=== PATIENT | female | born 1990 | race Caucasian/White ===

== ENCOUNTER 2018-02-26 13:45 | Emergency (ER) | payer OTHER ==
[2018-02-26 14:30] LABS: Urine Blood TRACE (NEG); Urine Glucose NEGATIVE (NEG); Urine Protein NEGATIVE (NEG); Urine Specific Gravity >1.030 (1.005-1.030)
[2018-02-26 15:55] LABS: Absolute Lymphocytes (CBC) 2.6 K/uL (0.7-4.9); Absolute Monocytes 0.8 K/uL (0.1-1.3); Absolute Neutrophil 3.9 K/uL (1.8-8.0); Basophils % 0.6 % (0-1.3); Eosinophils % 1.3 % (0-4.4); Hematocrit 45.2 % (36.0-45.0); MCH 30.6 pg (27.0-35.0); MCV 91.3 fL (80-100); MPV 9.3 fL (7.6-11.3); Monocytes % 10.6 % (3.3-12.3); RBC Red Blood Cell Count 4.95 M/uL (3.86-4.86)
[2018-02-26 16:07] LABS: Potassium 4.2 mEq/L (3.6-5.0)
[2018-02-26 16:13] LABS: Albumin 4.1 g/dL (3.2-5.5); Bilirubin Direct 0.1 mg/dL (0-0.2); Bilirubin Total 0.6 mg/dL (0.3-1.2); Protein, Total 7.7 g/dL (6.0-8.3)
--- NOTE | 2018-02-26 16:14 | RAD REPORT ---
EXAM DESCRIPTION: CT - Abdomen Pelvis W Contrast - 02/26/2018 3:58 pm CLINICAL HISTORY: Abdominal pain and pressure, history of endometriosis COMPARISON: None. TECHNIQUE: Biphasic, helical CT imaging of the abdomen and pelvis was performed following 100 ml non -ionic IV contrast. No oral contrast administered. All CT scans are performed using dose optimization technique as appropriate and may include automated exposure control or mA/KV adjustment according to patient size. FINDINGS: No suspicious findings in the lung bases. The liver, spleen, and pancreas show no suspicious findings. Gallbladder and biliary tree are also wi thout suspicious finding. Symmetric renal function is seen with no hydronephrosis or suspicious renal mass. No gastric dilatation or gastric wall thickening. No small bowel abnormality. Appendix is normal. No acute finding of the colon. No free air or pneumatosis. No hernia or bulky lymphadenopathy. Urinary bladder is mostly contracted limiting assessment. No abnormality suspected. No adrenal abnormality. There is a very large homogeneous fluid attenuation mass filling the pelvis. This is 17 x 10 mm in cr oss-sectional dimension. Uterus is deviated to the left but otherwise unremarkable. A 17 millimeter i nvoluting cyst of the left ovary is seen. Normal right ovarian tissue is difficult to identified. Phy siologic quantity of free fluid is present in the cul-de-sac. No suspicious bony findings. IMPRESSION: A 17 x 10 centimeter homogeneous fluid collection fills the pelvis. A right ovarian cyst adenoma is the single most likely etiology. Cystadenocarcinoma is not excluded but is not likely. Likewise, endometrioma is not suspected.
[2018-02-26 16:33] LABS: Urine Bacteria <20 /HPF (<20); Urine Culture Reflex Order REFLEXED; Urine Mucus 1+ /HPF (NONE SEEN); Urine RBC <5 /HPF (NONE SEEN)
--- NOTE | 2018-02-26 16:33 | ER ---
Nurse's Notes [facility] Name: Martina Carreon Age: 27 yrs Sex: Female : 1990 Arrival Date: 02/26/2018 Time: 13:48 Bed 13 Private MD: None, None Diagnosis: Unspecified ovarian cysts Presentation: 02/26 13:57 Presenting complaint: Patient states: Bilateral lower abdominal pressure for 3 days. aj Patient reports recent irregular periods. Has appointment with [facility] 03/09. Transition of care: patient was not received from another setting of care. Onset of symptoms was February 15, 2018. Care prior to arrival: None. 13:57 Method Of Arrival: Ambulatory aj 13:57 Acuity: HI 3 aj 14:16 Risk Assessment: Do you want to hurt yourself or someone else? Patient reports no tw2 desire to harm self or others. Initial Sepsis Screen: Does the patient meet any 2 criteria? No. Patient's initial sepsis screen is negative. Does the patient have a suspected source of infection? No. Patient's initial sepsis screen is negative. Triage Assessment: 13:59 General: Appears in no apparent distress. uncomfortable, Behavior is calm, cooperative, aj appropriate for age. Pain: Complains of pain in suprapubic area, right inguinal area and left inguinal area. Neuro: Level of Consciousness is awake, alert, obeys commands, Oriented to person, place, time, situation, Appropriate for age. Respiratory: Airway is patent Respiratory effort is even, unlabored, Respiratory pattern is regular, symmetrical. GI: Abdomen is round non-distended, Reports lower abdominal pain. Derm: Skin is intact, is healthy with good turgor, Skin is pink, warm \T\ dry. normal. 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 - Social history:: Smoking status: Patient uses tobacco products, smokes one pack cigarettes per day. Patient/guardian denies using alcohol, street drugs, The patient lives with family. - Ebola Screening: : Patient denies travel to an Ebola-affected area in the 21 days before illness onset. - Family history:: not pertinent. Screenin:16 Abuse screen: Denies threats or abuse. Nutritional screening: No deficits noted. tw2 Tuberculosis screening: No symptoms or risk factors identified. Fall Risk None identified. Assessment: 14:14 General: Appears in no apparent distress. Behavior is calm, cooperative, appropriate tw2 for age. Pain: Complains of pain in left inguinal area and right inguinal area and suprapubic area. Neuro: Level of Consciousness is awake, alert, obeys commands, Oriented to person, place, time, Appropriate for age. Cardiovascular: Denies chest pain, shortness of breath, Heart tones S1 S2 Capillary refill < 3 seconds Patient's skin is warm and dry. Respiratory: Airway is patent Respiratory effort is even, unlabored, Respiratory pattern is regular, symmetrical, Breath sounds are clear bilaterally. GI: Abdomen is round Bowel sounds present X 4 quads. Abd is soft X 4 quads Reports lower abdominal pain, bloating. : No signs and/or symptoms were reported regarding the genitourinary system. : Reports irregular period and having endometriosis. EENT: No signs and/or symptoms were reported regarding the EENT system. Derm: No signs and/or symptoms reported regarding the dermatologic system. Musculoskeletal: Range of motion: intact in all extremities. 15:50 Reassessment: pt taken to ct at this time. tw2 16:18 Reassessment: Patient appears in no apparent distress at this time. No changes from tw2 previously documented assessment. Patient and/or family updated on plan of care and expected duration. Pain level reassessed. Patient is alert, oriented x 3, equal unlabored respirations, skin warm/dry/pink. 16:37 Reassessment: provider at bedside at this time discussing diagnosis. tw2 16:47 Reassessment: Patient appears in no apparent distress at this time. No changes from tw2 previously documented assessment. Patient and/or family updated on plan of care and expected duration. Pain level reassessed. Patient is alert, oriented x 3, equal unlabored respirations, skin warm/dry/pink. Vital Signs: 13:59 BP 119 / 88; Pulse 94; Resp 20; Temp 97.8; Pulse Ox 99% on R/A; Weight 70.31 kg; Height aj 5 ft. 6 in. (167.64 cm); 14:30 BP 103 / 75; Pulse 79; Resp 17; Pulse Ox 99% on R/A; tw2 15:16 BP 102 / 68; Pulse 67; Resp 17; Pulse Ox 98% on R/A; tw2 16:17 BP 96 / 67; Pulse 67; Resp 18; Pulse Ox 99% on R/A; tw2 16:46 BP 103 / 71; Pulse 68; Resp 17; Pulse Ox 99% on R/A; tw2 13:59 Body Mass Index 25.02 (70.31 kg, 167.64 cm) ED Course: 13:48 Patient arrived in ED. mr 13:48 None, None is Private Physician. mr 13:58 Triage completed. aj 13:59 Arm band placed on right wrist. Patient placed in an exam room. aj 14:08 Rosetta Mattson, RN is Primary Nurse. tw2 14:16 Bed in low position. Call light in reach. Adult w/ patient. Pulse ox on. NIBP on. Warm tw2 blanket given. 14:19 Andreas Epps MD is Attending Physician. ma2 15:40 No provider procedures requiring assistance completed. Inserted saline lock: 22 gauge tw2 in right antecubital area, using aseptic technique. Blood collected. 15:57 CT completed. Patient moved to CT via wheelchair. Patient moved back from CT. cw1 15:57 CT Abd/Pelvis - W/Contrast In Process Unspecified. EDCA 16:31 Jatinder Hoyos MD is Referral Physician. ma2 16:47 IV discontinued, intact, bleeding controlled, No redness/swelling at site. Pressure tw2 dressing applied. Administered Medications: No medications were administered Outcome: 16:32 Discharge ordered by . ma2 16:47 Discharged to home ambulatory, with significant other. tw2 16:47 Condition: stable 16:47 Discharge instructions given to patient, significant other, Instructed on discharge instructions, follow up and referral plans. medication usage, Demonstrated understanding of instructions, follow-up care, medications, Prescriptions given X 1. 16:47 Patient left the ED. tw2 Signatures: Dispatcher [employer] EDCA Mariela Gonzalez RN RN aj Rivera, Maria mr OlivarezCindi cw1 Rosetta Mattson RN RN tw2 Alzahri, Mohammad, MD MD ma2
--- NOTE | 2018-02-26 16:33 | EDPHYS ---
Physician Documentation [facility] Name: Martina Carreon Age: 27 yrs Sex: Female : 1990 Arrival Date: 02/26/2018 Time: 13:48 Bed 13 Private MD: None, None ED Physician Andreas Epps HPI: 02/26 15:19 This 27 yrs old Female presents to ER via Ambulatory with complaints of ma2 Abdominal Pain. 15:19 The patient presents with abdominal pain in the lower abdomen. Onset: The ma2 symptoms/episode began/occurred gradually, 3 day(s) ago. The symptoms do not radiate. Associated signs and symptoms: Pertinent negatives: nausea and vomiting, diarrhea, dysuria, hematuria, nausea, shortness of breath, vomiting. Severity of pain: At its worst the pain was moderate in the emergency department the pain has resolved. Severity of pain: in the emergency department the pain has improved moderately. The patient has not experienced similar symptoms in the past. 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 - Social history:: Smoking status: Patient uses tobacco products, smokes one pack cigarettes per day. Patient/guardian denies using alcohol, street drugs, The patient lives with family. - Ebola Screening: : Patient denies travel to an Ebola-affected area in the 21 days before illness onset. - Family history:: not pertinent. ROS: 15:19 Abdomen/GI: Positive for abdominal pain. ma2 15:19 All other systems are negative. 16:38 Constitutional: Negative for fever, chills, and weight loss. ma2 Exam: 15:19 Constitutional: This is a well developed, well nourished patient who is awake, alert, ma2 and in no acute distress. Head/Face: Normocephalic, atraumatic. Chest/axilla: Normal chest wall appearance and motion. Nontender with no deformity. No lesions are appreciated. Cardiovascular: Regular rate and rhythm with a normal S1 and S2. No gallops, murmurs, or rubs. Normal PMI, no JVD. No pulse deficits. Respiratory: Lungs have equal breath sounds bilaterally, clear to auscultation and percussion. No rales, rhonchi or wheezes noted. No increased work of breathing, no retractions or nasal flaring. 15:19 Abdomen/GI: Palpation: mild abdominal tenderness, in the suprapubic area, right lower quadrant and left lower quadrant. Vital Signs: 13:59 BP 119 / 88; Pulse 94; Resp 20; Temp 97.8; Pulse Ox 99% on R/A; Weight 70.31 kg; Height aj 5 ft. 6 in. (167.64 cm); 14:30 BP 103 / 75; Pulse 79; Resp 17; Pulse Ox 99% on R/A; tw2 15:16 BP 102 / 68; Pulse 67; Resp 17; Pulse Ox 98% on R/A; tw2 16:17 BP 96 / 67; Pulse 67; Resp 18; Pulse Ox 99% on R/A; tw2 16:46 BP 103 / 71; Pulse 68; Resp 17; Pulse Ox 99% on R/A; tw2 13:59 Body Mass Index 25.02 (70.31 kg, 167.64 cm) aj MDM: 14:19 Patient medically screened. ma2 15:19 Differential diagnosis: bowel obstruction, cholecystitis, Cholelithiasis, ma2 diverticulitis, gastroesophageal reflux disease, Irritable bowel syndrome. 16:29 Data reviewed: vital signs, nurses notes, lab test result(s), radiologic studies. ma2 Counseling: I had a detailed discussion with the patient and/or guardian regarding: the historical points, exam findings, and any diagnostic results supporting the discharge/admit diagnosis, the presence of at least one elevated blood pressure reading (>120/80) during this emergency department visit, the need for outpatient follow up. Response to treatment: decline pain medicine . 02/26 14:21 Order name: Urine Dipstick--Ancillary (enter results); Complete Time: 15:40 bd 02/26 14:21 Order name: Urine --Ancillary (enter results); Complete Time: 15:40 bd 02/26 15:19 Order name: Amylase, Serum; Complete Time: 16:14 ma2 02/26 15:19 Order name: Basic Metabolic Panel; Complete Time: 16:14 [facility] 02/26 15:19 Order name: CBC with Diff; Complete Time: 16:06 [facility] 02/26 15:19 Order name: Creatinine for Radiology; Complete Time: 16:06 [facility] 02/26 15:19 Order name: Hepatic Function; Complete Time: 16:14 [facility] 02/26 15:19 Order name: Lipase; Complete Time: 16:14 [facility] 02/26 15:19 Order name: Urine Microscopic Only ut02/26 15:19 Order name: IV Saline Lock; Complete Time: 16:15 ut02/26 15:19 Order name: Labs collected and sent; Complete Time: 16:15 [facility] 02/26 15:19 Order name: Urine Dipstick-Ancillary (obtain specimen); Complete Time: 16:15 [facility] 02/26 15:19 Order name: CT Abd/Pelvis - W/Contrast; Complete Time: 16: [facility] 02/26 16:35 Order name: Urine Culture EDMS Administered Medications: No medications were administered Disposition: 02/26/18 16:32 Discharged to Home. Impression: Unspecified ovarian cysts. - Condition is Stable. - Discharge Instructions: Ovarian Cyst. - Prescriptions for Motrin IB 200 mg Oral Tablet - take 4 tablet by ORAL route every 6 hours As needed as needed with food; 40 tablet. - Medication Reconciliation Form, Thank You Letter, Antibiotic Education, Prescription Opioid Use form. - Follow up: Jatinder Hoyos MD; When: 48 Hours; Reason: Continuance of care. - Problem is new. - Symptoms are unchanged. Signatures: Dispatcher [employer] EDMS Mariela Gonzalez RN RN aj Wise, Tara, RN RN tw2 Andreas Epps MD MD ma2 Corrections: (The following items were deleted from the chart) 16:47 16:32 02/26/2018 16:32 Discharged to Home. Impression: Unspecified ovarian cysts. tw2 Condition is Stable. Forms are Medication Reconciliation Form, Thank You Letter, Antibiotic Education, Prescription Opioid Use. Follow up: Jatinder Hoyos; When: 48 Hours; Reason: Continuance of care. Problem is new. Symptoms are unchanged. ma2
== END 2018-02-26 16:47 | disposition home or self-care (01) ==
LOC: ER 13:45
DX: N83.209 Unspecified ovarian cyst, unspecified side (principal); F17.210 Nicotine dependence, cigarettes, uncomplicated; Z88.0 Allergy status to penicillin; Z88.5 Allergy status to narcotic agent; Z88.6 Allergy status to analgesic agent
CPT/HCPCS: 36415; 74177; 80048; 80076; 81003; 81015; 81025; 82150; 83690; 85025; 87086; 87088; 99284; Q9967

== ENCOUNTER 2018-03-15 08:36 | Day surgery (SDC) | payer OTHER ==
[2018-03-15] MEDS ORDERED: Ringers Lactate 1,000 ML IV ONE ×2 (09:18→11:50)
[2018-03-15] MEDS ORDERED: SCOPOLAMINE HYDROBROMIDE PATCH TD ONE (09:18)
[2018-03-15] MEDS ORDERED: PROPOFOL 200 MG/20 ML VIAL IV ONE (10:13)
[2018-03-15] MEDS ORDERED: GLYCOPYRROLATE 0.2 MG/ML SYR ONE (10:14)
[2018-03-15] MEDS ORDERED: DEXAMETHASONE 10 MG/ML VIAL ONE (10:16)
[2018-03-15] MEDS ORDERED: LIDOCAINE 2% MPF 5 ML VIAL ONE (10:16)
[2018-03-15] MEDS ORDERED: ROCURONIUM 50 MG/5 ML VIAL IV ONE ×3 (10:17→12:21)
[2018-03-15] MEDS ORDERED: FENTANYL CITR 250 MCG/5 ML ONE (10:17)
[2018-03-15] MEDS ORDERED: NEOSTIGMINE 1 MG/ML -5 ML SYRINGE ONE (10:17)
[2018-03-15] MEDS ORDERED: ONDANSETRON HCL 40 MG/20 ML VIAL ONE (10:17)
[2018-03-15] MEDS ORDERED: MIDAZOLAM HCL 2 MG/2 ML INJ ONE (10:18)
[2018-03-15] MEDS: MEPERIDINE HCL 50 MG/ML AMP ONE ×4 (13:11→13:31)
== END 2018-03-15 15:45 | disposition home or self-care (01) ==
LOC: OR 08:36
PROVIDERS: ATTEND Obstetrics & Gynecology
PROC: 0UT54ZZ Resection of Right Fallopian Tube, Percutaneous Endoscopic Approach (ICD-10-PCS; 2018-03-15)
PROC: 0UDB7ZX Extraction of Endometrium, Via Natural or Artificial Opening, Diagnostic (ICD-10-PCS; 2018-03-15)
PROC: 0UT04ZZ Resection of Right Ovary, Percutaneous Endoscopic Approach (ICD-10-PCS; principal; 2018-03-15 10:00)
DX: N83.201 Unspecified ovarian cyst, right side (principal); N92.6 Irregular menstruation, unspecified; F41.9 Anxiety disorder, unspecified; F32.9 Major depressive disorder, single episode, unspecified
CPT/HCPCS: 81025; 86850; 86900; 86901; 88108; 88305; 88307; J1100; J2175; J2250; J2405; J2710

== ENCOUNTER 2019-01-31 16:58 | Inpatient (IN) | payer BC ==
[2019-01-31] MEDS ORDERED: Ringers Lactate 1,000 ML IV PRN (17:03)
[2019-01-31] MEDS ORDERED: CEFAZOLIN/SWI 2gm 2 GM/20 ML SYR IVP SCH (17:15)
[2019-01-31] MEDS ORDERED: Ringers Lactate 1,000 ML IV SCH (18:00)
[2019-01-31 18:01] LABS: RPR Titer ND
[2019-01-31] MEDS ORDERED: FAMOTIDINE 20 MG/2 ML VIAL IV ONE (18:17)
[2019-01-31] MEDS ORDERED: NA CIT/CITRIC AC 30 ML ORAL UDC PO ONE (18:18)
[2019-01-31 18:20] LABS: Absolute Lymphocytes (CBC) 2.1 K/uL (0.7-4.9); Absolute Monocytes 0.7 K/uL (0.1-1.3); Absolute Neutrophil 7.7 K/uL (1.8-8.0); Basophils % 0.4 % (0-1.3); Eosinophils % 0.7 % (0-4.4); Hematocrit 34.6 % (36.0-45.0); Lymphocytes % 19.8 % (15.3-44.8); MPV 8.9 fL (7.6-11.3); Monocytes % 6.6 % (3.3-12.3); RBC Red Blood Cell Count 3.96 M/uL (3.86-4.86)
[2019-01-31] MEDS ORDERED: METOCLOPRAMIDE 10 MG/2mL INJ IV SCH (19:00)
[2019-01-31] MEDS ORDERED: MORPHINE SULFATE/PF 1 MG/ML (10 ML AMP) ONE (19:03)
[2019-01-31] MEDS ORDERED: OXYTOCIN 10 UNIT/ML ML IV ONE (19:12)
[2019-01-31] MEDS ORDERED: METHYLERGONOVINE 0.2MG/ML AMP IM ONE (19:29)
[2019-01-31 19:41] VITALS: BMI 28.7
[2019-01-31] MEDS ORDERED: ONDANSETRON 4 MG/2 ML VIAL ONE (19:58)
[2019-01-31] MEDS ORDERED: METHYLERGONOVINE 0.2 MG TAB PO PRN (20:23)
[2019-01-31] MEDS ORDERED: CARBOPROST TROME 250 MCG/ML IM PRN (20:23)
[2019-01-31] MEDS ORDERED: ONDANSETRON 4 MG (ODT) TAB PO PRN (20:23)
[2019-01-31] MEDS ORDERED: METHYLERGONOVINE 0.2MG/ML AMP IM PRN (20:23)
[2019-01-31] MEDS ORDERED: ACETAMINOPHEN 500 MG TAB PO PRN (20:23)
[2019-01-31] MEDS ORDERED: TRAMADOL HCL 50 MG TAB PO PRN (20:23)
--- NOTE | 2019-01-31 20:29 | P.BOP ---
Preoperative diagnosis: 37 week , SROM, prior Postoperative diagnosis: Same, delivery viable male infant Primary procedure: repeat Estimated blood loss: 800ml Specimen: placenta Anesthesia: Spinal Complications: None Transferred to: Other (271) Condition: Good
[2019-01-31] MEDS ORDERED: OXYTOCIN/LR 20 UNIT/1,000 ML BAG IV SCH (21:00)
[2019-01-31 21:04] LABS: RPR (Rapid Plasma Reagin) NON-REACT (NON-REACT)
--- NOTE | 2019-01-31 22:09 | PREOPHP ---
Date of Admission: 01/31/2019 History Of Present Illness: Ms. Carreon is a 28-year-old female, 3, para 1- 0-1-1, now at 37+ weeks gestation. She is admitted with spontaneous rupture of membranes, not in act meri labor. She has been followed by me during this with complications of prior se ction, prior possible growth restricted infant, prior spontaneous AB. Past Medical History: Please see record. Family History: Please see record. Review of Systems: She reports no recent cough, cold, fever, or chills. No recent nausea or vomiting. She denies any b reast lumps or knots. She denies any bowel or bladder issues. Physical Examination: General: Reveals somewhat anxious female. Neck: Supple without adenopathy or thyromegaly. Lungs: Clear. Cardiac: Regular rate and rhythm without murmurs. Breasts: Not examined. Abdomen: Estimated weight of 6+ to 7 pounds. Pelvic: Cervix 1-2 cm with spontaneous rupture of membranes and clear fluid noted. Extremities: No cyanosis, clubbing, or edema. Impression: A 37 weeks , spontaneous rupture of membranes, prior section with spenser re for repeat. Plan: The patient will be admitted. We will plan repeat section. GEORGE/JERONIMO Voice ID: [id number]
[2019-02-01 05:01] LABS: Absolute Lymphocytes (CBC) 2.3 K/uL (0.7-4.9); Absolute Monocytes 0.8 K/uL (0.1-1.3); Absolute Neutrophil 11.5 K/uL (1.8-8.0); Basophils % 0.3 % (0-1.3); Eosinophils % 0.5 % (0-4.4); Hematocrit 33.7 % (36.0-45.0); Lymphocytes % 15.7 % (15.3-44.8); MPV 8.7 fL (7.6-11.3); Monocytes % 5.4 % (3.3-12.3); RBC Red Blood Cell Count 3.88 M/uL (3.86-4.86)
[2019-02-01] MEDS: IBUPROFEN 400 MG TAB PO SCH (17:15)
[2019-02-01] MEDS ORDERED: IBUPROFEN 200 MG TAB PO ONE (17:29)
[2019-02-02] MEDS: IBUPROFEN 400 MG TAB PO SCH (01:34)
[2019-02-02 07:28] VITALS: BP 136/75; TEMP 96.6
--- NOTE | 2019-02-02 11:53 | PN ---
Postoperatively the patient has done quite well, afebrile, ambulating, voiding. No postspinal block problems. She has had her Tdap immunization. A dismissal analgesic prescription has been written an d given. She knows she can call to Labor and Delivery over the weekend, if she has any problems. Jyoti grant will call Dr. Hoyos's office today for an appointment for next week and further instructions. ERICA/JERONIMO Voice ID: [id number] Report ID: [id number]
[2019-02-05 03:46] LABS: HBsAG Nonreactive (Nonreactive)
== END 2019-02-02 08:30 | disposition home or self-care (01) | DRG 788 ==
LOC: 2ND-WC 16:58
PROVIDERS: ADMIT Specialist; ATTEND Specialist
PROC: 10D00Z1 Extraction of Products of Conception, Low, Open Approach (ICD-10-PCS; principal; 2019-01-31 19:14)
DX: O34.211 Maternal care for low transverse scar from previous cesarean delivery (principal); N85.8 Other specified noninflammatory disorders of uterus; Z3A.37 37 weeks gestation of pregnancy; Z37.0 Single live birth; Z88.6 Allergy status to analgesic agent; Z88.5 Allergy status to narcotic agent; Z88.0 Allergy status to penicillin
CPT/HCPCS: 36415; 85025; 86592; 86850; 86900; 86901; 87340; 88307; J0690; J2210; J2405; J2590; J2765

== ENCOUNTER 2019-09-15 07:38 | Emergency (ER) | payer BC ==
[2019-09-15 08:13] LABS: Urine Blood NEGATIVE (NEG); Urine Glucose NEGATIVE (NEG); Urine Protein NEGATIVE (NEG); Urine pH 5.5 (5.0-7.0)
[2019-09-15] MEDS ORDERED: LEVALBUTEROL 1.25 MG/3 ML NEB ONE (08:14)
[2019-09-15] MEDS ORDERED: IPRATROPIUM BROM 0.5MG/2.5ML ONE (08:14)
[2019-09-15] MEDS ORDERED: MORPHINE 2 MG/ML SYR ONE ×2 (08:15→10:29)
[2019-09-15] MEDS ORDERED: NA CHLORIDE 0.9% 1,000 ML ONE (08:15)
[2019-09-15] MEDS ORDERED: ONDANSETRON 4 MG/2 ML VIAL ONE (08:17)
[2019-09-15 08:56] LABS: Absolute Lymphocytes (CBC) 1.3 K/uL (0.7-4.9); Basophils % 0.5 % (0-1.3); Hematocrit 41.5 % (36.0-45.0); MPV 9.1 fL (7.6-11.3); RBC Red Blood Cell Count 4.73 M/uL (3.86-4.86)
[2019-09-15] MEDS ORDERED: CEFTRIAXONE/SWI 1gm 2 GM/20 ML SYR ONE (09:30)
--- NOTE | 2019-09-15 09:48 | EDPHYS ---
Physician Documentation [facility] Name: Martina Carreon Age: 29 yrs Sex: Female : 1990 Arrival Date: 09/15/2019 Time: 07:39 Bed 16 Private MD: ED Physician Lamont Lin HPI: 09/15 08:07 This 29 yrs old Female presents to ER via Wheelchair with complaints of fabian Shortness Of Breath, Pain. 08:07 The patient has shortness of breath at rest, with light activity. Onset: The fabian symptoms/episode began/occurred 1 day(s) ago. Duration: The symptoms are intermittent, with episodes lasting 5 second(s) at a time. The patient's shortness of breath is aggravated by coughing, talking, is alleviated by rest. Associated signs and symptoms: The patient has no apparent associated signs or symptoms. Severity of symptoms: At their worst the symptoms were moderate in the emergency department the symptoms are unchanged. The patient has not experienced similar symptoms in the past. 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 - Social history:: Smoking status: Patient uses tobacco products, smokes one-half pack cigarettes per day. - Ebola Screening: : Patient negative for fever greater than or equal to 101.5 degrees Fahrenheit, and additional compatible Ebola Virus Disease symptoms Patient denies exposure to infectious person Patient denies travel to an Ebola-affected area in the 21 days before illness onset No symptoms or risks identified at this time. - Family history:: not pertinent. ROS: 08:07 Constitutional: Negative for fever, chills, and weight loss, Eyes: Negative for injury, fabian pain, redness, and discharge, ENT: Negative for injury, pain, and discharge, Neck: Negative for injury, pain, and swelling, Cardiovascular: Negative for chest pain, palpitations, and edema, Abdomen/GI: Negative for abdominal pain, nausea, vomiting, diarrhea, and constipation, Back: Negative for injury and pain, : Negative for injury, bleeding, discharge, and swelling, MS/Extremity: Negative for injury and deformity, Skin: Negative for injury, rash, and discoloration, Neuro: Negative for headache, weakness, numbness, tingling, and seizure, Psych: Negative for depression, anxiety, suicide ideation, homicidal ideation, and hallucinations, Allergy/Immunology: Negative for hives, rash, and allergies, Endocrine: Negative for neck swelling, polydipsia, polyuria, polyphagia, and marked weight changes, Hematologic/Lymphatic: Negative for swollen nodes, abnormal bleeding, and unusual bruising. 08:07 Respiratory: Positive for cough, with no reported sputum, shortness of breath, on exertion. Exam: 08:07 Constitutional: This is a well developed, well nourished patient who is awake, alert, fabian and in no acute distress. Head/Face: Normocephalic, atraumatic. Eyes: Pupils equal round and reactive to light, extra-ocular motions intact. Lids and lashes normal. Conjunctiva and sclera are non-icteric and not injected. Cornea within normal limits. Periorbital areas with no swelling, redness, or edema. ENT: Nares patent. No nasal discharge, no septal abnormalities noted. Tympanic membranes are normal and external auditory canals are clear. Oropharynx with no redness, swelling, or masses, exudates, or evidence of obstruction, uvula midline. Mucous membranes moist. Neck: Trachea midline, no thyromegaly or masses palpated, and no cervical lymphadenopathy. Supple, full range of motion without nuchal rigidity, or vertebral point tenderness. No Meningismus. Chest/axilla: Normal chest wall appearance and motion. Nontender with no deformity. No lesions are appreciated. Cardiovascular: Regular rate and rhythm with a normal S1 and S2. No gallops, murmurs, or rubs. Normal PMI, no JVD. No pulse deficits. Abdomen/GI: Soft, non-tender, with normal bowel sounds. No distension or tympany. No guarding or rebound. No evidence of tenderness throughout. Back: No spinal tenderness. No costovertebral tenderness. Full range of motion. Skin: Warm, dry with normal turgor. Normal color with no rashes, no lesions, and no evidence of cellulitis. MS/ Extremity: Pulses equal, no cyanosis. Neurovascular intact. Full, normal range of motion. Neuro: Awake and alert, GCS 15, oriented to person, place, time, and situation. Cranial nerves II-XII grossly intact. Motor strength 5/5 in all extremities. Sensory grossly intact. Cerebellar exam normal. Normal gait. Psych: Awake, alert, with orientation to person, place and time. Behavior, mood, and affect are within normal limits. 08:07 Respiratory: the patient does not display signs of respiratory distress, Respirations: labored breathing, that is mild, that is moderate, Breath sounds: rhonchi, that are mild, are scattered, Respiratory rate: 20 08:09 Musculoskeletal/extremity: DVT Exam: No signs of deep vein thrombosis. no pain, no fabian swelling, no tenderness, negative Homans' sign noted on exam, no appreciated bluish discoloration, no erythema, no increased warmth. Vital Signs: 07:52 BP 128 / 79; Pulse 108; Resp 20 S; Temp 98.2(O); Pulse Ox 100% on R/A; Weight 74.84 kg; iw Height 5 ft. 6 in. (167.64 cm); Pain 8/10; 08:29 BP 117 / 73; Pulse 97; Resp 18; Temp 99(O); Pulse Ox 100% on R/A; mh5 09:36 BP 118 / 69; Pulse 85; Resp 18; Temp 98.7(O); Pulse Ox 98% on R/A; mh5 10:20 BP 105 / 66; Pulse 93; Resp 19; Pulse Ox 100% on R/A; Pain 10/10; rb1 11:20 BP 115 / 68; Pulse 89; Resp 18; Pulse Ox 100% on R/A; rb1 11:44 BP 114 / 77; Pulse 88; Resp 17; Temp 98.7(O); Pulse Ox 100% on R/A; mh5 12:15 BP 110 / 59; Pulse 85; Resp 19; Pulse Ox 99% ; Pain 8/10; rb1 07:52 Body Mass Index 26.63 (74.84 kg, 167.64 cm) iw MDM: 07:41 Patient medically screened. [facility] 08:09 Data reviewed: vital signs, nurses notes, lab test result(s), radiologic studies, plain fabian films. 09/15 08:06 Order name: CBC with Diff; Complete Time: 09:03 [facility] 09/15 08:06 Order name: Comprehensive Metabolic Panel; Complete Time: 09:58 [facility] 09/15 08:06 Order name: Chest Pa And Lat (2 Views) XRAY [facility] 09/15 08:10 Order name: Urine Dipstick--Ancillary (enter results); Complete Time: 08:32 ms 09/15 08:10 Order name: Urine --Ancillary (enter results); Complete Time: 08:32 ms 09/15 08:34 Order name: Blood Culture Adult (2) [facility] 09/15 09:04 Order name: INCENTIVE SPIROMETRY [facility] 09/15 10:26 Order name: CT Chest For PE Angio [facility] 09/15 08:06 Order name: Urine Dipstick-Ancillary (obtain specimen); Complete Time: 08:10 [facility] 09/15 08:06 Order name: Urine Test (obtain specimen); Complete Time: 08:10 [facility] Administered Medications: 08:33 Drug: NS 0.9% 1000 ml {Note: pt. had gone to xray.} Route: IV; Rate: 1 bolus; Site: rb1 left antecubital; 09:52 Follow up: IV Status: Completed infusion rb1 08:34 Drug: morphine 2 mg Route: IVP; Site: left antecubital; rb1 08:50 Follow up: Response: No adverse reaction; Pain is decreased rb1 08:34 Drug: Zofran 4 mg Route: IVP; Site: left antecubital; rb1 08:50 Follow up: Response: No adverse reaction rb1 08:35 Drug: Xopenex 2.5 mg Route: Inhalation; rb1 08:35 Drug: AtroVENT Aerosol 0.5 mg Route: Inhalation; rb1 10:00 Drug: Rocephin 2 grams Route: IV; Rate: per protocol; Site: left antecubital; rb1 10:30 Follow up: Response: No adverse reaction; IV Status: Completed infusion rb1 10:00 Drug: Zithromax 500 mg Route: IVPB; Infused Over: 1 hrs; Site: left antecubital; rb1 11:33 Follow up: Response: No adverse reaction; IV Status: Completed infusion rb1 10:32 Drug: morphine 2 mg Route: IVP; Site: left antecubital; rb1 10:50 Follow up: Response: No adverse reaction; Pain is decreased rb1 Disposition: 09/15/19 09:47 Discharged to Home. Impression: Pneumonia due to other specified bacteria, Pleurisy, Tobacco abuse counseling, Tobacco use, Pleural effusion in conditions classified elsewhere. - Condition is Stable. - Discharge Instructions: Pleural Effusion, Pleurisy, Community-Acquired Pneumonia, Adult, Steps to Quit Smoking, Smoking Hazards, Community-Acquired Pneumonia, Adult, [id number], Steps to Quit Smoking, Wrxi-vr-[id number], Pleurisy, [id number]. - Prescriptions for Tramadol 50 mg Oral Tablet - take 1 tablet by ORAL route every 8 hours as needed; 26 tablet. Albuterol Sulfate 90 mcg/actuation - inhale 1-2 puff by INHALATION route every 4-6 hours; 1 Inhaler. Zithromax 500 mg Oral Tablet - take 1 tablet by ORAL route once daily for 5 days; 5 tablet. - Medication Reconciliation Form, Thank You Letter, Antibiotic Education, Prescription Opioid Use form. - Follow up: Private Physician; When: 2 - 3 days; Reason: Recheck today's complaints, Continuance of care, Re-evaluation by your physician. Follow up: Joseph Brooks; When: 2 - 3 days; Reason: Recheck today's complaints, Re-evaluation by your physician. - Problem is new. - Symptoms have improved. Signatures: Dispatcher [employer] EDMS Lamont Lin MD MD cha Williams, Irene, RN RN Crissy Sawyer RN RN rb1 Corrections: (The following items were deleted from the chart) 10:22 09:47 09/15/2019 09:47 Discharged to Home. Impression: Pneumonia due to other specified fabian bacteria; Pleurisy; Tobacco abuse counseling; Tobacco use. Condition is Stable. Discharge Instructions: Pleurisy, Community-Acquired Pneumonia, Adult, Steps to Quit Smoking, Smoking Hazards, Community-Acquired Pneumonia, Adult, Nzyy-ve-Iirw, Steps to Quit Smoking, Hnnv-od-Ezye, Pleurisy, Pafi-lb-Zyrt. Prescriptions for Tramadol 50 mg Oral Tablet - take 1 tablet by ORAL route every 8 hours as needed; 26 tablet, Albuterol Sulfate 90 mcg/actuation - inhale 1-2 puff by INHALATION route every 4-6 hours; 1 Inhaler, Zithromax 500 mg Oral Tablet - take 1 tablet by ORAL route once daily for 5 days; 5 tablet. and Forms are Medication Reconciliation Form, Thank You Letter, Antibiotic Education, Prescription Opioid Use. Follow up: Private Physician; When: 2 - 3 days; Reason: Recheck today's complaints, Continuance of care, Re-evaluation by your physician. Follow up: Joseph Brooks; When: 2 - 3 days; Reason: Recheck today's complaints, Re-evaluation by your physician. Problem is new. Symptoms have improved. [facility] 12:18 10:22 09/15/2019 09:47 Discharged to Home. Impression: Pneumonia due to other specified rb1 bacteria; Pleurisy; Tobacco abuse counseling; Tobacco use; Pleural effusion in conditions classified elsewhere. Condition is Stable. Discharge Instructions: Pleurisy, Community-Acquired Pneumonia, Adult, Steps to Quit Smoking, Smoking Hazards, Community-Acquired Pneumonia, Adult, Abpv-mu-Afai, Steps to Quit Smoking, Xmev-tr-Mzlw, Pleurisy, Tjdy-on-Ecfk. Prescriptions for Tramadol 50 mg Oral Tablet - take 1 tablet by ORAL route every 8 hours as needed; 26 tablet, Albuterol Sulfate 90 mcg/actuation - inhale 1-2 puff by INHALATION route every 4-6 hours; 1 Inhaler, Zithromax 500 mg Oral Tablet - take 1 tablet by ORAL route once daily for 5 days; 5 tablet. and Forms are Medication Reconciliation Form, Thank You Letter, Antibiotic Education, Prescription Opioid Use. Follow up: Private Physician; When: 2 - 3 days; Reason: Recheck today's complaints, Continuance of care, Re-evaluation by your physician. Follow up: Joseph Brooks; When: 2 - 3 days; Reason: Recheck today's complaints, Re-evaluation by your physician. Problem is new. Symptoms have improved. [facility]
--- NOTE | 2019-09-15 09:48 | ER ---
Nurse's Notes [facility] Name: Martina Carreon Age: 29 yrs Sex: Female : 1990 Arrival Date: 09/15/2019 Time: 07:39 Bed 16 Private MD: Diagnosis: Pneumonia due to other specified bacteria;Pleurisy;Tobacco abuse counseling;Tobacco use;Pleural effusion in conditions classified elsewhere Presentation: 09/15 07:47 Presenting complaint: Patient states: right sided chest pain/rib pain radiating up to iw right shoulder started yesterday when she woke up, pain got better as day went on, go worse last night when she laid down, denies injury, states pain feels like squeezing pain in ribs, and muscle pain in right shoulder , reports mild cough. Transition of care: patient was not received from another setting of care. Onset of symptoms was September 14, 2019. Risk Assessment: Do you want to hurt yourself or someone else? Patient reports no desire to harm self or others. Initial Sepsis Screen: Does the patient meet any 2 criteria? No. Patient's initial sepsis screen is negative. Does the patient have a suspected source of infection? No. Patient's initial sepsis screen is negative. Care prior to arrival: None. 07:47 Method Of Arrival: Wheelchair iw 07:47 Acuity: HI 3 iw Triage Assessment: 07:47 Respiratory: the patient has mild shortness of breath. 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 - Social history:: Smoking status: Patient uses tobacco products, smokes one-half pack cigarettes per day. - Ebola Screening: : Patient negative for fever greater than or equal to 101.5 degrees Fahrenheit, and additional compatible Ebola Virus Disease symptoms Patient denies exposure to infectious person Patient denies travel to an Ebola-affected area in the 21 days before illness onset No symptoms or risks identified at this time. - Family history:: not pertinent. Screenin:47 Abuse screen: Denies threats or abuse. Nutritional screening: No deficits noted. rb1 Tuberculosis screening: No symptoms or risk factors identified. Fall Risk None identified. Assessment: 07:47 General: Appears uncomfortable, Behavior is calm, cooperative, Denies fever. Pain: rb1 Complains of pain in anterior aspect of right upper chest Pain radiates to right shoulder and ribs Pain currently is 10 out of 10 on a pain scale. Quality of pain is described as squeezing, Pain began 1 day ago. Neuro: Level of Consciousness is awake, alert, obeys commands, Oriented to person, place, time, situation. Cardiovascular: Rhythm is regular. Respiratory: Reports cough that is non-productive, Airway is patent Respiratory effort is even, unlabored, Respiratory pattern is regular, symmetrical, Breath sounds are diminished in right posterior lower lobe. Respiratory: Reports shortness of breath. GI: No signs and/or symptoms were reported involving the gastrointestinal system. : No signs and/or symptoms were reported regarding the genitourinary system. Derm: Skin is pink, warm \T\ dry. Musculoskeletal: Range of motion: intact in all extremities. 10:00 Reassessment: Discharge pending due to waiting for pharmacy to bring Zithromax, rb1 medication has been initiated. 10:25 Reassessment: Patient appears in no apparent distress at this time. Patient and/or rb1 family updated on plan of care and expected duration. Pain level reassessed. Patient is alert, oriented x 3, equal unlabored respirations, skin warm/dry/pink. Pt. requested pain medication. Provider notified. Received verbal order for Morphine 2 mg IVP x once. 11:25 Reassessment: Patient appears in no apparent distress at this time. Patient and/or rb1 family updated on plan of care and expected duration. Pain level reassessed. Patient is alert, oriented x 3, equal unlabored respirations, skin warm/dry/pink. Discharge pending due to IV antibiotics infusing. 12:12 Reassessment: Patient appears in no apparent distress at this time. Patient and/or rb1 family updated on plan of care and expected duration. Pain level reassessed. Patient is alert, oriented x 3, equal unlabored respirations, skin warm/dry/pink. Vital Signs: 07:52 BP 128 / 79; Pulse 108; Resp 20 S; Temp 98.2(O); Pulse Ox 100% on R/A; Weight 74.84 kg; iw Height 5 ft. 6 in. (167.64 cm); Pain 8/10; 08:29 BP 117 / 73; Pulse 97; Resp 18; Temp 99(O); Pulse Ox 100% on R/A; mh5 09:36 BP 118 / 69; Pulse 85; Resp 18; Temp 98.7(O); Pulse Ox 98% on R/A; mh5 10:20 BP 105 / 66; Pulse 93; Resp 19; Pulse Ox 100% on R/A; Pain 10/10; rb1 11:20 BP 115 / 68; Pulse 89; Resp 18; Pulse Ox 100% on R/A; rb1 11:44 BP 114 / 77; Pulse 88; Resp 17; Temp 98.7(O); Pulse Ox 100% on R/A; mh5 12:15 BP 110 / 59; Pulse 85; Resp 19; Pulse Ox 99% ; Pain 8/10; rb1 07:52 Body Mass Index 26.63 (74.84 kg, 167.64 cm) iw ED Course: 07:39 Patient arrived in ED. as 07:39 Lamont Lin MD is Attending Physician. fabian 07:50 Triage completed. iw 07:52 Crissy De Jesus, RN is Primary Nurse. rb1 07:52 Arm band placed on. iw 08:20 Chest Pa And Lat (2 Views) XRAY In Process Unspecified. EDMS 08:30 Inserted saline lock: 22 gauge in left antecubital area, using aseptic technique. Blood rb1 collected. 08:31 Patient has correct armband on for positive identification. Bed in low position. Call 5 light in reach. Pulse ox on. NIBP on. 09:47 Joseph Brooks MD is Referral Physician. fabian 11:03 CT completed. Patient tolerated procedure well. Patient moved back from CT. mw3 11:04 CT Chest For PE Angio In Process Unspecified. EDMS 12:18 No provider procedures requiring assistance completed. IV discontinued, intact, rb1 bleeding controlled, No redness/swelling at site. Pressure dressing applied. Administered Medications: 08:33 Drug: NS 0.9% 1000 ml {Note: pt. had gone to xray.} Route: IV; Rate: 1 bolus; Site: rb1 left antecubital; 09:52 Follow up: IV Status: Completed infusion rb1 08:34 Drug: morphine 2 mg Route: IVP; Site: left antecubital; rb1 08:50 Follow up: Response: No adverse reaction; Pain is decreased rb1 08:34 Drug: Zofran 4 mg Route: IVP; Site: left antecubital; rb1 08:50 Follow up: Response: No adverse reaction rb1 08:35 Drug: Xopenex 2.5 mg Route: Inhalation; rb1 08:35 Drug: AtroVENT Aerosol 0.5 mg Route: Inhalation; rb1 10:00 Drug: Rocephin 2 grams Route: IV; Rate: per protocol; Site: left antecubital; rb1 10:30 Follow up: Response: No adverse reaction; IV Status: Completed infusion rb1 10:00 Drug: Zithromax 500 mg Route: IVPB; Infused Over: 1 hrs; Site: left antecubital; rb1 11:33 Follow up: Response: No adverse reaction; IV Status: Completed infusion rb1 10:32 Drug: morphine 2 mg Route: IVP; Site: left antecubital; rb1 10:50 Follow up: Response: No adverse reaction; Pain is decreased rb1 Outcome: 09:47 Discharge ordered by MD. peralta 12:18 Patient left the ED. rb1 12:18 Discharged to home via wheelchair, with family. rb1 12:18 Condition: stable 12:18 Discharge instructions given to patient, Instructed on discharge instructions, follow up and referral plans. medication usage, Demonstrated understanding of instructions, follow-up care, medications, Prescriptions given X 3. Signatures: Dispatcher [employer] EDLamont Purdy MD MD cha Martinez, Amelia as Williams, Irene, RN RN iw Barber, Rebecca, RN RN rb1 Martinez, Maria [facility] Jasmin Acharya mw3 Corrections: (The following items were deleted from the chart) 12:17 10:50 morphine 2 mg IVP in left antecubital rb1 rb1
[2019-09-15 09:52] LABS: ALT/SGPT 22 U/L (12-78); Albumin 3.9 g/dL (3.4-5.0); Alkaline Phosphatase 117 U/L (45-117); BUN Blood Urea Nitrogen 8 mg/dL (7-18); Bicarbonate 25 mmol/L (21-32); Bilirubin Total 1.5 mg/dL (0.2-1.0); Glucose Level 104 mg/dL (74-106); Potassium 3.8 mmol/L (3.5-5.1); Protein, Total 9.3 g/dL (6.4-8.2); Sodium Level 137 mmol/L (136-145)
[2019-09-15 09:55] LABS: AST/SGOT < 3 U/L (15-37)
[2019-09-15] MEDS ORDERED: AZITHROMYCIN IV 500 MG in NA CHLORIDE 0.9% 250 ML IVPB ONE (10:00)
--- NOTE | 2019-09-15 10:16 | RAD REPORT ---
EXAM DESCRIPTION: RAD - Chest Pa And Lat (2 Views) - 09/15/2019 8:21 am CLINICAL HISTORY: Chest pain;Cough Chest pain. COMPARISON: No comparisons FINDINGS: Small right pleural effusion is noted. Hazy opacity in the right lung base may represent i nfiltrate/ pneumonia or atelectasis. The heart is normal in size. No displaced fractures. IMPRESSION: Small right pleural effusion.
--- NOTE | 2019-09-15 11:14 | RAD REPORT ---
EXAM DESCRIPTION: CT - Chest For Pe Angio - 09/15/2019 11:03 am CLINICAL HISTORY: Chest pain. Chest pain;Dyspnea COMPARISON: Chest Pa And Lat (2 Views) dated 09/15/2019 TECHNIQUE: CT angiogram of the pulmonary arteries was performed with MIP. All CT scans are performed using dose optimization technique as appropriate and may include automated exposure control or mA/KV adjustment according to patient size. FINDINGS: No evidence of pulmonary thromboembolism. No acute aortic finding demonstrated. Poorly defined opacities in the right lung base are noted likely representing infiltrate/ pneumonia. Small right pleural effusion. Mild linear atelectasis for early infiltrate also noted 6. No concerning bony finding. IMPRESSION: No evidence of pulmonary thromboembolism. Early/developing right lung base pneumonia suspected.
[2019-09-15 12:27] VITALS: TEMP 98.7
[2019-09-15 12:28] VITALS: O2SAT 100
[2019-09-15 12:31] VITALS: BP 114/77
== END 2019-09-15 12:18 | disposition home or self-care (01) ==
LOC: ER 07:38
DX: J15.8 Pneumonia due to other specified bacteria (principal); J90 Pleural effusion, not elsewhere classified; Z72.0 Tobacco use; Z71.6 Tobacco abuse counseling; Z88.0 Allergy status to penicillin; Z88.5 Allergy status to narcotic agent; Z88.6 Allergy status to analgesic agent
CPT/HCPCS: 96365; 96361; 96368; 87040 ×2; 85025; 36415; 81025; 81003; 80053; 71275; 71046; 96375; 99285; 96366; Q9967; J0456; J2270 ×2; J0696; J7030 ×2; J2405